=== PATIENT | male | born 1990 | race Caucasian/White ===

== ENCOUNTER 2016-09-05 07:36 | Day surgery (SDC) | payer MEDICAID ==
[2016-09-05] VITALS (7 sets, daily range): BP systolic 131–151; BP diastolic 85–102; PULSE 61–79; RESP 14–18; TEMP 97.8–98.8; O2SAT 98–100
[~2016-09-05] VITALS: Ht 167.6 cm; Wt 59.0 kg
[~2016-09-05 07:36] MED LIST: RANI150 PO; SUCR1S PO; ZOFR4TAB3 SL
--- NOTE | 2016-09-05 08:07 | PD ---
HPI Chief Complaint: GI Complaint Time Seen by Provider: 07:56 Travel History International Travel<30 days: No Contact w/Intl Traveler<30days: No Traveled to known affect area: No History of Present Illness HPI This patient complains of abdominal pain. He has epigastric and right lower quadrant pain. Duration is 6 hours. Severity is moderate. He's had some nausea and episode of emesis. No fever or diarrhea. No abdominal surgeries. Symptoms have no alleviating factors. PFSH Past Medical History Asthma: Yes (As child) Blood Disorders: No Cancer: No Cardiovascular Problems: No Developmental Delay: No Diabetes: No Diminished Hearing: No Endocrine: No Gastrointestinal Disorders: Yes (gastritis) Genitourinary: No Hepatitis: No Hiatal Hernia: No Immune Disorder: No Musculoskeletal: No Neurologic: No Psychiatric: No Reproductive: No Respiratory: Yes Immunizations Current: Yes Thyroid Disease: No Past Surgical History AICD: No Eye Surgery: Yes (Repair of eye muscles left eye as child) Joint Replacement: No Pacemaker: No Other Surgery: Yes (repair of injured right forearm due to trauma) Social History Alcohol Use: Yes (Occ.) Tobacco Use: Yes (1 ppd) Substance Use: No Allergies-Medications (Allergen,Severity, Reaction): Coded Allergies: Codeine (Verified Allergy, Mild, RASH, 09/05/16) Reported Meds & Prescriptions Reported Meds & Active Scripts Active No Active Prescriptions or Reported Medications Review of Systems General / Constitutional: No: Fever Eyes: No: Visual changes HENT: No: Headaches Cardiovascular: No: Chest Pain or Discomfort Respiratory: No: Shortness of Breath Gastrointestinal: Positive: Nausea, Vomiting, Abdominal Pain Genitourinary: No: Dysuria Musculoskeletal: No: Pain Skin: No Rash Neurologic: No: Weakness Psychiatric: No: Depression Endocrine: No: Polydipsia Hematologic/Lymphatic: No: Easy Bruising Physical Exam Narrative GENERAL: Well-nourished, well-developed patient with abdominal pain. SKIN: Focused skin assessment reveals no rash and nodules. Skin is Warm and dry. HEAD: Atraumatic. Normocephalic. EYES: Pupils equal and round. No scleral icterus. No injection or drainage. ENT: No nasal bleeding or discharge. Mucous membranes pink and moist. NECK: Trachea midline. No JVD. CARDIOVASCULAR: Regular rate and rhythm. No murmur appreciated. RESPIRATORY: No accessory muscle use. Clear to auscultation. Breath sounds equal bilaterally. GASTROINTESTINAL: Abdomen soft, epigastrium and right lower quadrant tender without rebound or guarding. nondistended. Hepatic and splenic margins not palpable. There is no left lower quadrant tenderness. MUSCULOSKELETAL: No obvious deformities. No clubbing. No cyanosis. No edema. NEUROLOGICAL: Awake and alert. No obvious cranial nerve deficits. Motor grossly within normal limits. Normal speech. PSYCHIATRIC: Appropriate mood and affect; insight and judgment normal. Data Data Last Documented VS Vital Signs Date Time Temp Pulse Resp B/P Pulse Ox O2 Delivery O2 Flow Rate FiO2 09/05/16 10:11 61 18 151/96 100 Room Air 09/05/16 07:41 97.8 Orders Complete Blood Count With Diff (09/05/16 08:02) Comprehensive Metabolic Panel (09/05/16 08:02) Lipase (09/05/16 08:02) Prothrombin Time / Inr (Pt) (09/05/16 08:02) Act Partial Throm Time (Ptt) (09/05/16 08:02) Urinalysis - C+S If Indicated (09/05/16 08:02) Ct Abd/Pel W Iv Contrast(Rout) (09/05/16 08:02) Iv Access Insert/Monitor (09/05/16 08:02) Ecg Monitoring (09/05/16 08:02) Oximetry (09/05/16 08:02) Sodium Chloride 0.9% Flush (Ns Flush) (09/05/16 08:15) Ondansetron Inj (Zofran Inj) (09/05/16 08:15) Morphine Inj (Morphine Inj) (09/05/16 08:15) Sodium Chlor 0.9% 1000 Ml Inj (Ns 1000 M (09/05/16 08:15) Iohexol 350 Inj (Omnipaque 350 Inj) (09/05/16 08:50) Ampicillin-Sulbactam Inj (Unasyn Inj) (09/05/16 09:45) Morphine Inj (Morphine Inj) (09/05/16 10:30) Admit Order (Ed Use Only) (09/05/16 10:37) Labs Laboratory Tests Test 09/05/16 09/05/16 07:50 08:30 White Blood Count 14.7 TH/MM3 Red Blood Count 5.31 MIL/MM3 Hemoglobin 15.5 GM/DL Hematocrit 46.4 % Mean Corpuscular Volume 87.3 FL Mean Corpuscular Hemoglobin 29.2 PG Mean Corpuscular Hemoglobin 33.4 % Concent Red Cell Distribution Width 12.4 % Platelet Count 185 TH/MM3 Mean Platelet Volume 9.4 FL Neutrophils (%) (Auto) 77.8 % Lymphocytes (%) (Auto) 11.0 % Monocytes (%) (Auto) 7.8 % Eosinophils (%) (Auto) 3.0 % Basophils (%) (Auto) 0.4 % Neutrophils # (Auto) 11.5 TH/MM3 Lymphocytes # (Auto) 1.6 TH/MM3 Monocytes # (Auto) 1.1 TH/MM3 Eosinophils # (Auto) 0.4 TH/MM3 Basophils # (Auto) 0.1 TH/MM3 CBC Comment DIFF FINAL Differential Comment Prothrombin Time 10.6 SEC Prothromb Time International 1.0 RATIO Ratio Activated Partial 26.4 SEC Thromboplast Time Sodium Level 141 MEQ/L Potassium Level 4.1 MEQ/L Chloride Level 106 MEQ/L Carbon Dioxide Level 28.9 MEQ/L Anion Gap 6 MEQ/L Blood Urea Nitrogen 8 MG/DL Creatinine 1.00 MG/DL Estimat Glomerular Filtration 91 ML/MIN Rate Random Glucose 99 MG/DL Calcium Level 8.9 MG/DL Total Bilirubin 0.2 MG/DL Aspartate Amino Transf 16 U/L (AST/SGOT) Alanine Aminotransferase 22 U/L (ALT/SGPT) Alkaline Phosphatase 49 U/L Total Protein 6.5 GM/DL Albumin 3.8 GM/DL Lipase 90 U/L Urine Collection Type CLEAN CATCH Urine Color YELLOW Urine Turbidity CLEAR Urine pH 5.5 Urine Specific [place] 1.021 Urine Protein NEG mg/dL Urine Glucose (UA) NEG mg/dL Urine Ketones NEG mg/dL Urine Occult Blood NEG Urine Nitrite NEG Urine Bilirubin NEG Urine Leukocyte Esterase NEG Urine WBC /hpf Urine Squamous Epithelial 0-5 /hpf Cells Microscopic Urinalysis Comment CULT NOT INDICATED Urine Collection Time 08:30 [facility] Medical Decision Making Medical Screen Exam Complete: Yes Emergency Medical Condition: Yes Medical Record Reviewed: Yes Differential Diagnosis Appendicitis, pancreatitis, biliary colic, colitis Narrative Course I have reviewed the patient's electronic medical record. Patient was seen here in January 2016 for gastritis and had negative CT the abdomen and pelvis IV placed I gave him a liter of normal saline IV bolus and IV Zofran and IV morphine for symptom relief CBC shows leukocytosis of 14,000 Metabolic profile is normal LFTs are normal Lipase is normal Coagulation studies are normal Urinalysis is clean CT of abdomen and pelvis reveals acute appendicitis without perforation I gave him injection of Unasyn and 1 more pain dose I reviewed with general surgeon Patient will be observed in the hospital and will receive appendectomy shortly Diagnosis Primary Impression: Appendicitis, acute Qualified Code: K35.3 - Acute appendicitis with localized peritonitis Admitting Information Admitting Physician Requests: Observation Scripts No Active Prescriptions or Reported Meds Jeff Contreras MD Sep 05, 2016 08:07
[2016-09-05] MEDS ORDERED: SODIUM CHLOR 0.9% 1000 ML INJ 1,000 ML IV ONE (08:15)
[2016-09-05] MEDS ORDERED: MORPHINE SULFATE 4 MG/ML INJ IV PUSH ONE ×2 (08:15→10:30)
[2016-09-05] MEDS ORDERED: SODIUM CHLORIDE 0.9% FLUSH 10 ML FLUSH IV FLUSH PRN ×2 (08:15→13:00)
[2016-09-05] MEDS ORDERED: ONDANSETRON HCL 4 MG/2 ML VIAL IVP ONE (08:15)
[2016-09-05 08:31] LABS: AUTOMATED NEUTROPHIL # 11.5 TH/MM3 (1.8-7.7); BASOPHIL # 0.1 TH/MM3 (0-0.2); BASOPHIL % 0.4 % (0.0-2.0); EOSINOPHIL # 0.4 TH/MM3 (0-0.4); HEMATOCRIT 46.4 % (39.0-51.0); HEMO FLAGS DIFF FINAL; LYMPHOCYTE # 1.6 TH/MM3 (1.0-4.8); MEAN CELL VOLUME 87.3 FL (80.0-100.0); MEAN CORPUSCULAR HEMOGLOBIN 29.2 PG (27.0-34.0); MEAN CORPUSCULAR HGB CONC 33.4 % (32.0-36.0); MONO % 7.8 % (0.0-8.0); NEUT % 77.8 % (16.0-70.0); PLATELET COUNT 185 TH/MM3 (150-450); RED BLOOD COUNT 5.31 MIL/MM3 (4.50-5.90); RED CELL DISTRIBUTION WIDTH 12.4 % (11.6-17.2); WHITE BLOOD COUNT 14.7 TH/MM3 (4.0-11.0)
[2016-09-05 08:34] LABS: CHLORIDE 106 MEQ/L (98-107); POTASSIUM 4.1 MEQ/L (3.5-5.1); SODIUM (NA) 141 MEQ/L (136-145)
[2016-09-05 08:37] LABS: BLOOD, URINE NEG (NEG); GLUCOSE,URINE NEG (NEG); KETONE, URINE NEG (NEG); NITRITE,URINE NEG (NEG); PH, URINE 5.5 (5.0-8.5)
[2016-09-05 08:38] LABS: ANION GAP 6 MEQ/L (5-15); APTT (PATIENT) 26.4 SEC (24.3-30.1); BICARBONATE 28.9 MEQ/L (21.0-32.0); BLOOD UREA NITROGEN 8 MG/DL (7-18); PROTHROMBIN TIME - PATIENT 10.6 SEC (9.8-11.6)
[2016-09-05 08:40] LABS: ALT (GPT) 22 U/L (12-78); AST (GOT) 16 U/L (15-37)
[2016-09-05 08:41] LABS: GLOMERULAR FILTRATION RATE 91 ML/MIN (>89)
[2016-09-05 08:42] LABS: TOTAL BILIRUBIN ADULT 0.2 MG/DL (0.2-1.0)
[2016-09-05 08:43] LABS: ALKALINE PHOSPHATASE 49 U/L (45-117)
[2016-09-05 08:45] LABS: METHOD OF COLLECTION CLEAN CATCH; SQUAMOUS EPITHELIAL CELL URINE 0-5 /hpf (0-5); URINE COLOR YELLOW (YELLW/STRAW)
[2016-09-05 08:46] LABS: COMMENT (UR) CULT NOT INDICATED; CULTURE IF INDICATED CULT NOT INDICATED
[2016-09-05] MEDS ORDERED: IOHEXOL 350 MG/ML 10 ML VIAL (for RAD DIAG) IV ONE (08:50)
--- NOTE | 2016-09-05 09:21 | RADHPO ---
EXAM DATE/TIME: 09/05/2016 08:41 [facility] COMPARISON: CT ABDOMEN & PELVIS W CONTRAST, February 05, 2016, 4:26. INDICATIONS : Right lower quadrant pain. Nausea and vomiting. IV CONTRAST: 80 cc Omnipaque 350 (iohexol) IV ORAL CONTRAST: No oral contrast ingested. RADIATION DOSE: 4.56 CTDIvol (mGy) MEDICAL HISTORY : Asthma. SURGICAL HISTORY : None. ENCOUNTER: Initial ACUITY: 1 day PAIN SCALE: 6/10 LOCATION: Right lower quadrant TECHNIQUE: Volumetric scanning of the abdomen and pelvis was performed. Using automated exposure control and ad justment of the mA and/or kV according to patient size, radiation dose was kept as low as reasonably achievable to obtain optimal diagnostic quality images. FINDINGS: LOWER LUNGS: The visualized lower lungs are clear. LIVER: Homogeneous density without lesion. There is no dilation of the biliary tree. No calcified gallston es. Periportal congestive changes are present. SPLEEN: Normal size without lesion. PANCREAS: Within normal limits. KIDNEYS: Normal in size and shape. There is no mass, stone or hydronephrosis. ADRENAL GLANDS: Within normal limits. VASCULAR: There is no aortic aneurysm. BOWEL/MESENTERY: There is an abnormal tubular structure extending off the base of the appendix measuring up 1.6 cm in diameter with wall enhancement. There is higher density material within the structure and there is ap parent mild surrounding inflammatory change with no free air or fluid. Gas and stool noted segmentall y in the colon. ABDOMINAL WALL: Within normal limits. RETROPERITONEUM: There is no lymphadenopathy. BLADDER: No wall thickening or mass. REPRODUCTIVE: Within normal limits. INGUINAL: There is no lymphadenopathy or hernia. MUSCULOSKELETAL: Within normal limits for patient age. CONCLUSION: 1. Acute appendicitis with no evidence of perforation. There is apparent mild surrounding inflammator y change. 2. Periportal congestion in the liver. Tomi Morin MD on September 05, 2016 at 9:13 Board Certified Radiologist. This report was verified electronically.
[2016-09-05] MEDS ORDERED: AMPICILLIN-SULBACTAM INJ 3 GM in SODIUM CHLORIDE 0.9% INJ 100 ML IV ONE (09:45)
[2016-09-05] MEDS ORDERED: POVIDONE IODINE 5% (ANTISEPSIS KIT) 4 APPLICATIONS EACH NARE PRN (11:00)
[2016-09-05] MEDS ORDERED: SODIUM CHLORID 0.9% 500 ML IV PRN (11:00)
[2016-09-05] MEDS ORDERED: METOPROLOL TARTRATE 25 MG TAB PO PRN (11:00)
[2016-09-05] MEDS ORDERED: INSULIN HUMAN REGULAR 1,000 UNITS/10 ML VIAL SQ PRN (11:00)
[2016-09-05] MEDS ORDERED: LACTATED RINGER'S 1000 ML IV PRN (11:00)
[2016-09-05] MEDS ORDERED: CHLORHEXIDINE GLUCONATE 2 % 1 PACK (2 CLOTHS) TOPICAL PRN (11:00)
[2016-09-05] MEDS ORDERED: BUPIVACAINE/EPINEPHRINE 0.25% PF 30 ML VIAL ONE (11:06)
[2016-09-05] MEDS ORDERED: FAMOTIDINE 20 MG/2 ML VIAL ONE (11:41)
[2016-09-05] MEDS ORDERED: ACETAMINOPHEN 1000 MG/100 ML VIAL IV ONE (11:45)
[2016-09-05] MEDS ORDERED: MIDAZOLAM HCL 2 MG/2 ML VIAL ONE (11:45)
[2016-09-05] MEDS ORDERED: ONDANSETRON HCL 4 MG/2 ML VIAL IV PUSH ONE (12:00)
[2016-09-05] MEDS ORDERED: PROPOFOL 200 MG/20 ML AMP IV ONE (12:00)
[2016-09-05] MEDS ORDERED: NEOSTIGMINE 3 MG/3 ML SYR IV ONE (12:00)
[2016-09-05] MEDS ORDERED: KETOROLAC TROMETHAMINE 60 MG/2 ML (IM) VIAL IM ONE (12:00)
[2016-09-05] MEDS ORDERED: LACTATED RINGER'S 1000 ML INJ 1,000 ML IV ONE (12:00)
[2016-09-05] MEDS ORDERED: SODIUM CHLOR 0.9% 1000 ML INJ 1,000 ML IV SCH (12:55)
--- NOTE | 2016-09-05 12:55 | HHI.PR ---
Immediate Post Op Note Procedure Date: Sep 05, 2016 Pre Op Diagnosis: (1) Appendicitis, acute Post Op Diagnosis: (1) Appendicitis, acute Surgeon: Gabriel George Operations Specialist(s): staff Procedure: laparoscopic appendectomy Findings: acute uncomplicated appendicitis Complications: n Specimen(s) removed: appy Estimated blood loss: 10ml Anesthesia: General, Local Drains: None IVF Patient to: PACU Patient Condition: Good Gabriel George MD Sep 05, 2016 12:55
[2016-09-05] MEDS ORDERED: ONDANSETRON HCL 4 MG/2 ML VIAL IV PRN (13:00)
[2016-09-05] MEDS ORDERED: Post-op Orders (for Pharmacy) MISC XX ONE (13:00)
[2016-09-05] MEDS ORDERED: IBUPROFEN 600 MG TAB PO PRN (13:00)
[2016-09-05] MEDS ORDERED: MORPHINE SULFATE 4 MG/ML INJ IV PRN (13:00)
[2016-09-05] MEDS ORDERED: SODIUM CHLORIDE 0.9% FLUSH 10 ML FLUSH IV FLUSH SCH (13:00)
[2016-09-05] MEDS ORDERED: ACETAMINOPHEN/HYDROcodone 325 MG/5 MG TAB PO PRN ×2 (13:00)
[2016-09-05] MEDS ORDERED: fentaNYL CITRATE 250 MCG/5 ML AMP ONE ×2 (13:13)
--- NOTE | 2016-09-05 13:27 | MH ---
cc: CABRERA PERRIN DATE OF ADMISSION 09/05/2016 CHIEF COMPLAINT Acute appendicitis HISTORY OF PRESENT ILLNESS The patient is a 26-year-old male who developed less than 12 hours of periumbilical abdominal pain that relocated to his right lower quadrant over the past six hours. The pain is moderate in severity and is constant without radiation. The patient never had pain like this before. The patient presented to [facility], underwent evaluation including a CT scan which was read as a dilated and inflamed appendix concerning for acute appendicitis. General surgery was consulted to evaluate the patient. REVIEW OF SYSTEMS A 12-point review of systems was discussed with the patient and is negative except for the pertinent positives mentioned above in the history present illness. PAST SURGICAL HISTORY Orthopedic surgery MEDICAL HISTORY None ALLERGIES CODEINE MEDICATIONS None SOCIAL HISTORY The patient uses alcohol occasionally, smokes cigarettes. Denies illicit drug use. FAMILY HISTORY Noncontributory, the brother did have ruptured appendicitis. PHYSICAL EXAM VITAL SIGNS: Pulse 61, temperature 97.8, blood pressure 151/96. GENERAL: The patient is a thin male no acute distress. HEAD: Normocephalic, atraumatic. EYES: Pupils round and on light. Sclerae anicteric. Mucous membranes are moist. NECK: Supple. No JVD. LUNGS: Clear to auscultation bilaterally. Normal breathing pattern. HEART: Regular rate and rhythm. PMI is nondisplaced. ABDOMEN: Soft, nondistended. Normal bowel sounds. He has a tenderness in right lower quadrant without focal peritonitis and without rebound or guarding. His tenderness is right over McBurney's point. No right upper quadrant tenderness. BACK: No CVA tenderness. EXTREMITIES: No clubbing, cyanosis, edema. NEUROLOGIC: The patient is awake, alert, oriented x3 moving all extremities equally. Nonfocal and cranial II XII are grossly intact. LABORATORY VALUES Reveal an elevated white blood cell count of 14.7, hemoglobin 15.5. Urinalysis is negative. IMAGING STUDIES CT scan shows acute appendicitis. ASSESSMENT AND PLAN The patient is a 26-year-old male with acute appendicitis. I did discuss the findings and recommended to the patient and his family including his about the treatments including laparoscopic appendectomy. I do recommend laparoscopic appendectomy urgently based on operating room availability, removal of the appendix prior to rupture of worsening condition. The risks, benefits, alternatives were explained to the patient and family and they agreed to undergo the procedure. I will give the patient antibiotics, IV fluids, appropriate pain medication and make the patient n.p.o. and will proceed to the operating room for the next available time. MD KEN Willoughby/BELÉN /1:04 PM /1:11 PM
[2016-09-05] MEDS ORDERED: NORC5TAB PO (13:47)
[2016-09-05] MEDS ORDERED: *MEPERIDINE 25 MG INJ VIAL PERIprocedural Use ONLY ONE (14:09)
--- NOTE | 2016-09-07 19:23 | MP ---
cc: CABRERA PERRIN DATE OF SURGERY September 05, 2016 PREOPERATIVE DIAGNOSIS Acute appendicitis. POSTOPERATIVE DIAGNOSIS Acute uncomplicated appendicitis. ATTENDING SURGEON Cabrera Perrin MD INSOLE DOUBLER Staff. ANESTHESIA General and local anesthetic. BLOOD LOSS 10 mL COMPLICATIONS None. FINDINGS Acute uncomplicated appendicitis. No other intra-abdominal pathology. INDICATIONS FOR PROCEDURE The patient is a 26-year-old male with less than 12 hours of right lower quadrant pain. He was evaluated at [facility] and was found on CT scan to have acute appendicitis. Risks, benefits, alternatives to laparoscopic appendectomy for acute appendicitis were discussed with the patient prior to the procedure and the patient agreed to undergo the procedure. PROCEDURE DETAILS After informed consent was obtained, the patient was taken to the operating room and placed in supine position, placed under general endotracheal anesthesia. The patient's abdomen was shaved, prepped and draped in sterile fashion. Time-out was performed. Abdomen was entered through a Jose technique with direct entry just below the umbilicus with a 10 mm curvilinear incision. We used local anesthetic at this site as all port sites. We directly opened the fascia in the midline and placed a 10-mm port directly into the abdominal cavity under direct visualization. We insufflated the abdomen and then with a 5 mm camera surveyed the abdomen. There was no evidence of any complication from our entry. We then placed a 5 mm port in the subxiphoid position and a 5 mm port in the left lower quadrant under direct visualization with laparoscope. I was able to easily identify the appendix which was suppurative without gangrenous changes and without perforation. A window was made easily at the base of the appendix with a [place] dissector and the white load on the echelon GI stapler was used take the base of the appendix as it splayed into the tinea. We were then able to take the appendiceal mesentery easily with a anaya load on the echelon stapler. The appendix was removed through the abdomen with an EndoCatch bag. We did suction all small blood clots and cauterized a small area in the retroperitoneum that had some small oozing. We had excellent hemostasis overall. We did suction and suctioned out some inflammatory fluid in the pelvis which was essentially light clear. Again at this point in time, he had no evidence of any complication. No bleeding. No sign of staple leak and also the bowel and colon were all viable and intact. We placed omentum back over the right lower quadrant in a normal anatomic position. We removed ports under visualization with the laparoscope and expressed pneumoperitoneum. We closed the fascia of all three port sites with simple 0 Vicryl sutures. We closed the skin with 4-0 Monocryl and Dermabond. The patient discontinued from anesthesia and taken to PACU in stable condition. The patient tolerated the procedure well. No apparent complications. All counts were correct. I was present and scrubbed throughout the entire procedure. MD KEN Willoughby/KK /1:07 PM /7:12 PM
== END 2016-09-05 15:00 | disposition home or self-care (01) ==
LOC: PHED 07:36 → UNDOADMIN 10:38 → PHEDA 10:38 → PHSDC 12:57
PROVIDERS: ATTEND Surgery
DX: K35.3 Acute appendicitis with localized peritonitis (principal); F17.210 Nicotine dependence, cigarettes, uncomplicated
CPT/HCPCS: 00840; 44970; 74177; 80053; 81001; 83690; 85025; 85610; 85730; 88304; 96361; 96365; 96375; 96376; 99285; J0131; J0295; J1885; J2175; J2250; J2270; J2405; J2710; J3010; J7030; J7120; Q9967

== ENCOUNTER 2016-12-24 22:02 | Emergency (ER) | payer MEDICAID ==
[~2016-12-24] VITALS: Ht 170.2 cm; Wt 56.0 kg
[~2016-12-24 22:02] MED LIST changes: +NORC5TAB PO; -RANI150 PO; -SUCR1S PO; -ZOFR4TAB3 SL
[2016-12-24 22:10] VITALS: BP 129/82; PULSE 66; RESP 18; TEMP 98.3; O2SAT 100
[2016-12-24] MEDS ORDERED: IBUP800T23 PO (22:41)
--- NOTE | 2016-12-24 22:41 | PD ---
HPI Chief Complaint: Pain: Acute or Chronic Time Seen by Provider: 22:30 Travel History International Travel<30 days: No Contact w/Intl Traveler<30days: No Traveled to known affect area: No History of Present Illness HPI 26-year-old female presents to the emergency room for evaluation of right shoulder pain for the past week. He denies any trauma or injury. States it started after he went to an indoor trampoline park and performed a bunch of obstacle courses. Patient states pain is intermittent, worse with any range of motion of the right upper extremity. States it randomly improves and then recurs. He has been taking ibuprofen without significant relief in symptoms. Denies paresthesias. PFSH Past Medical History Asthma: Yes (As child) Blood Disorders: No Cancer: No Cardiovascular Problems: No Developmental Delay: No Diabetes: No Diminished Hearing: No Endocrine: No Gastrointestinal Disorders: Yes (gastritis) Genitourinary: No Hepatitis: No Hiatal Hernia: No Immune Disorder: No Musculoskeletal: No Neurologic: No Psychiatric: No Reproductive: No Respiratory: Yes (ASTHMA) Immunizations Current: Yes Thyroid Disease: No Past Surgical History Abdominal Surgery: No AICD: No Cardiac Surgery: No Ear Surgery: No Endocrine Surgery: No Eye Surgery: Yes (Repair of eye muscles left eye as child (SEVERAL SURGERIES)) Genitourinary Surgery: No Gynecologic Surgery: No Joint Replacement: No Oral Surgery: No Pacemaker: No Thoracic Surgery: No Other Surgery: Yes (repair of injured right forearm due to trauma) Social History Alcohol Use: Yes (Occ.) Tobacco Use: Yes (1 ppd) Substance Use: No Allergies-Medications (Allergen,Severity, Reaction): Coded Allergies: codeine (Unverified Allergy, Mild, RASH, 12/23/16) Reported Meds & Prescriptions Reported Meds & Active Scripts Active Ibuprofen 800 Mg Tab 800 Mg PO Q8H PRN Review of Systems Except as stated in HPI: all other systems reviewed are Neg Physical Exam Narrative GENERAL: Well-nourished, well-developed male in no acute distress. Afebrile. Ambulatory. SKIN: Focused skin assessment warm/dry. No erythema or ecchymosis. No increased warmth. HEAD: Normocephalic. EYES: No scleral icterus. No injection or drainage. NECK: Supple, trachea midline. No JVD or lymphadenopathy. CARDIOVASCULAR: Regular rate and rhythm without murmurs, gallops, or rubs. RESPIRATORY: Breath sounds equal bilaterally. No accessory muscle use. MUSCULOSKELETAL: No cyanosis, or edema. Full range of motion of the right upper extremity but with pain. Pain is less with passive range of motion. 2+ radial pulse. Radial, ulnar, and median nerves intact. Tenderness to palpation over the right anterior humeral head. Data Data Last Documented VS Vital Signs Date Time Temp Pulse Resp B/P Pulse Ox O2 Delivery O2 Flow Rate FiO2 12/24/16 22:25 12/24/16 22:10 98.3 66 18 100 MDM Medical Decision Making Medical Screen Exam Complete: Yes Emergency Medical Condition: Yes Medical Record Reviewed: Yes Differential Diagnosis Shoulder pain, rotator cuff injury, bursitis Narrative Course 26-year-old male presents to the emergency room for evaluation of right anterior shoulder pain for the past week. Pain is intermittent. Worse with range of motion. Denies any specific trauma or injury but states it started after playing at an indoor trampoline park. Right upper extremity is neurovascularly intact with 2+ radial pulse. Radial, ulnar, and median nerves intact. Full range of motion but with pain during overhead extension. No indication for imaging at this time. Patient was given Toradol and the emergency room only discharged with prescription for ibuprofen. Told to maintain range of motion and follow-up with her primary care physician for outpatient MRI if symptoms persist. He will return for worsening symptoms. He understands and agrees to plan. Diagnosis Primary Impression: Right anterior shoulder pain Referrals: Primary Care Physician Patient Instructions: General Instructions, Shoulder Sprain (ED) Additional Instructions: Rest and drink plenty of fluids. Maintain range of motion to prevent worsening symptoms. Take ibuprofen with food as directed, as needed for pain. Apply ice to the affected area for 20 minutes at a time, as needed for pain and swelling. Follow-up with a primary care physician. Return to the emergency room for worsening symptoms. Med/Other Pt SpecificInfo: Prescription(s) given Scripts Ibuprofen 800 Mg [id number] Mg PO Q8H PRN (Pain/Inflammation) #15 TAB Ref 0 Prov:Ana Cristina Pardo MD 12/24/16 Disposition: 01 DISCHARGE HOME Condition: Stable Rosa M Zeng Dec 24, 2016 22:41
== END 2016-12-24 22:55 | disposition home or self-care (01) ==
LOC: PHEFT 22:02
DX: M25.511 Pain in right shoulder (principal); F17.200 Nicotine dependence, unspecified, uncomplicated; Z87.09 Personal history of other diseases of the respiratory system; Z87.19 Personal history of other diseases of the digestive system
CPT/HCPCS: 99282

== ENCOUNTER 2017-07-29 18:29 | Emergency (ER) | payer SELFPAY ==
[~2017-07-29] VITALS: Ht 170.2 cm; Wt 52.6 kg
[~2017-07-29 18:29] MED LIST changes: +IBUP1TAB7 PO; -NORC5TAB PO
[2017-07-29 19:27] VITALS: BP 156/93; PULSE 62; RESP 16
[2017-07-29] MEDS ORDERED: IBUP1TAB7 PO (20:50)
--- NOTE | 2017-07-29 20:50 | PD ---
HPI Chief Complaint: Pain: Acute or Chronic Time Seen by Provider: 20:35 Travel History International Travel<30 days: No Contact w/Intl Traveler<30days: No Traveled to known affect area: No History of Present Illness HPI This is a 27-year-old male here with nontraumatic right shoulder pain ongoing since December. Reports pain is worse with range of motion. Symptom severity is moderate. He reports he was previously told this was a rotator cuff injury. Denies paresthesia or weakness in extremity. No fever chills. No chest pain or shortness breath. PFSH Past Medical History Asthma: Yes (As child) Blood Disorders: No Cancer: No Cardiovascular Problems: No Developmental Delay: No Diabetes: No Diminished Hearing: No Endocrine: No Gastrointestinal Disorders: Yes (gastritis) Genitourinary: No Hepatitis: No Hiatal Hernia: No Immune Disorder: No Musculoskeletal: No Neurologic: No Psychiatric: No Reproductive: No Respiratory: Yes (ASTHMA) Immunizations Current: Yes Thyroid Disease: No ?: Not Past Surgical History Abdominal Surgery: No AICD: No Appendectomy: Yes Cardiac Surgery: No Ear Surgery: No Endocrine Surgery: No Eye Surgery: Yes (left eye as a baby) Genitourinary Surgery: No Gynecologic Surgery: No Joint Replacement: No Oral Surgery: No Pacemaker: No Thoracic Surgery: No Other Surgery: Yes (repair of injured right forearm due to trauma) Social History Alcohol Use: Yes ("rarely") Tobacco Use: Yes (1/2-1 ppd) Substance Use: No Allergies-Medications (Allergen,Severity, Reaction): Coded Allergies: codeine (Unverified Allergy, Mild, RASH, 07/29/17) Reported Meds & Prescriptions Reported Meds & Active Scripts Active Review of Systems Except as stated in HPI: all other systems reviewed are Neg Physical Exam Narrative GENERAL: Alert well-appearing 27-year-old male SKIN: Warm and dry. HEAD: Normocephalic. EYES: No scleral icterus. No injection or drainage. NECK: Supple MUSCULOSKELETAL: No cyanosis, or edema. Right upper extremity: No bony tenderness. Pain with forward extension. Positive Neer's test. Normal sensation. Equal hand grasp. 2+ distal pulses. Brisk cap refill. Data Data Last Documented VS Vital Signs Date Time Temp Pulse Resp B/P (MAP) Pulse Ox O2 Delivery O2 Flow Rate FiO2 07/29/17 19:27 62 16 156/93 (114) [facility] Medical Decision Making Medical Screen Exam Complete: Yes Emergency Medical Condition: Yes Differential Diagnosis Rotator cuff injury, minor shoulder strain, arthritis Narrative Course 27 old male here with right shoulder pain. I believe this is a minor rotator cuff injury. Sling for comfort. NSAIDs for pain. Follow-up with the [facility] Diagnosis Primary Impression: Shoulder pain Qualified Codes: M25.511 - Pain in right shoulder Referrals: [facility] Departure Forms: Tests/Procedures, Work Release Enter return to work date: Jul 30, 2017 Scripts Ibuprofen (Ibuprofen) 800 Mg Tab 800 MG PO Q6HR Y for PAIN, #40 TAB 0 Refills Prov: Shavon Carmona 07/29/17 Disposition: 01 DISCHARGE HOME Condition: Stable Shavon Carmona Jul 29, 2017 20:50
== END 2017-07-29 21:04 | disposition home or self-care (01) ==
LOC: PHED 18:29 → PHEFT 21:04
DX: M25.511 Pain in right shoulder (principal); F17.210 Nicotine dependence, cigarettes, uncomplicated; Z88.5 Allergy status to narcotic agent
CPT/HCPCS: 99283